=== PATIENT | male | born 1980 | race Caucasian/White ===

== ENCOUNTER 2017-01-13 21:16 | Emergency (ER) | payer BC ==
[~2017-01-13] VITALS: Ht 175.3 cm; Wt 146.0 kg
[2017-01-13 21:21] VITALS: Ht 175.3 cm; Wt 146.0 kg
[2017-01-13] MEDS ORDERED: PRED50TA PO (21:52)
[2017-01-13] MEDS ORDERED: PROM5SYR2 PO (21:52)
--- NOTE | 2017-01-13 21:59 | ERD ---
ER Documentation Chief Complaint Date/Time DATE: 01/13/17 TIME: 21:57 Chief Complaint cough x 6 days HPI Patient is a 36-year-old male who has had a dry cough for about 1 week. He says he has also had a fever but he has been taking Motrin. He was seen by his primary care doctor and he was given a Z-Thomas and today was the last dose and he continues to have some coughing. Denies any nausea or vomiting. He does state he is a smoker and used to smoke about a pack and a half a day but recently has cut down to 8 a day and is making progress to quit smoking more. Denies any chest pain. Denies any shortness of breath. His cough is dry worse at night and makes it difficult for him to sleep. ROS All systems reviewed and are negative except as per history of present illness. Medications Home Meds Active Scripts Promethazine HCl/Codeine (Prometh-Codein 6.25-10 mg/5 ml) 5 Ml Syrup, 5 ML PO QHS, #5 OZ Prov:LIYAH VALIENTE PA-C 01/13/17 Prednisone* (Prednisone*) 50 Mg Tablet, 50 MG PO DAILY, #5 TAB Prov:LIYAH VALIENTE PA-C 01/13/17 Allergies Allergies: Coded Allergies: acetaminophen (Verified Allergy, SWELLING, 08/17/13) hydrocodone bit (Verified Allergy, SWELLING, 08/17/13) morphine (Verified Allergy, 08/17/13) Uncoded Allergies: OPIATES (Allergy, 11/08/12) PMhx/Soc History of Surgery: No Anesthesia Reaction: No Hx Neurological Disorder: No Hx Respiratory Disorders: No Hx Cardiac Disorders: No Hx Psychiatric Problems: No Hx Miscellaneous Medical Probl: No Hx Alcohol Use: No Hx Substance Use: No Hx Tobacco Use: No FmHx Family History: No diabetes Physical Exam Vitals Vital Signs Date Time Temp Pulse Resp B/P Pulse Ox O2 Delivery O2 Flow Rate FiO2 01/13/17 21:21 98.6 96 20 156/80 98 Physical Exam General: well developed, well nourished, alert, nontoxic, no distress Head: normocephalic, atraumatic Eyes: PERRL, normal conjunctiva Neck: Supple, nontender, no lymphadenopathy, no midline tenderness Ears: no tenderness over mastoids bilaterally, TMs nonerythematous, no exudates in canal Oropharynx: no tonsilar erythema or edema, uvula midline, no exudates, no kissing tonsils, no drooling Respiratory: Mild expiratory wheezing, no use of accessory muscles, no labored breathing Cardiovascular: RRR, No murmurs Procedures/MDM Patient presents with what is most likely wheezy bronchitis. His vital signs are normal he is afebrile. He recently completed azithromycin today. I doubt he has pneumonia. I doubt he needs morning antibiotics. He was counseled on smoking cessation for 2 minutes. He was given a prescription for promethazine with codeine cough syrup as well as a short course of prednisone. Recommended this patient follow up with her primary care doctor within 48 hours or return to the emergency room for any worsening of symptoms. However this time I do believe there is suitable for outpatient management. I answered all their questions and they agreed with the plan and were discharged home. Departure Diagnosis: Primary Impression: Wheezy bronchitis Condition: Stable Patient Instructions: Bronchitis With Wheezing (Adult) Additional Instructions: Call your primary care doctor TOMORROW for an appointment during the next 1-2 days.See the doctor sooner or return here if your condition worsens before your appointment time. LIYAH VALIENTE PA-C Jan 13, 2017 21:59
== END 2017-01-13 22:20 | disposition home or self-care (01) ==
LOC: FTE 21:16
DX: J40 Bronchitis, not specified as acute or chronic (principal); F17.210 Nicotine dependence, cigarettes, uncomplicated
CPT/HCPCS: 99284

== ENCOUNTER 2017-01-20 19:59 | Inpatient (IN) | payer BC ==
[~2017-01-20] VITALS: Ht 177.8 cm; Wt 145.0 kg
[~2017-01-20 19:59] MED LIST: PRED50TA PO; PROM5SYR2 PO
--- NOTE | 2017-01-20 22:18 | RADRPT ---
PROCEDURE: XR Chest. CLINICAL INDICATION: Cough. TECHNIQUE: Single frontal view of the chest. COMPARISON: 08/19/2013. FINDINGS: Cardiomegaly and mild pulmonary vascular junction with mild bilateral patchy mid lung and lung base atelectasis versus airspace disease. lung aeration is improved over interval. No signs of pleural fl uid or pneumothorax are seen. The osseous structures and soft tissues are unremarkable. IMPRESSION: Improved mild failure. RPTAT: [facility] Physician Ernesto Date Time Electronically viewed and signed by Physician Ernesto on 01/20/2017 22:18 RS/
[2017-01-20 22:51] LABS: ABNORMAL IP MESSAGE 1; HEMATOCRIT 47.3 % (42.0-52.0); HEMOGLOBIN 15.7 g/dl (14.0-18.0); MEAN CORPUSCULAR HEMOGLOBIN 27.6 pg (29.0-33.0); MEAN CORPUSCULAR HGB CONC 33.2 g/dl (32.0-37.0); MEAN CORPUSCULAR VOLUME 83.1 fl (82.0-101.0); MEAN PLATELET VOLUME 8.9 fl (7.4-10.4); PLATELET COUNT 441 10^3/UL (140-415); RED BLOOD COUNT 5.69 10^6/ul (4.70-6.10); RED CELL DISTRIBUTION WIDTH 14.1 % (11.5-14.5)
[2017-01-20 22:55] LABS: INR 1.02; PROTIME 13.4 Sec (12.2-14.2)
[2017-01-20 22:56] LABS: PARTIAL THROMBOPLASTIN TIME 28.3 Sec (25.0-35.0)
[2017-01-20 23:02] LABS: ANION GAP 15 (8-16); BLOOD UREA NITROGEN 19 mg/dl (7-20); CALCIUM 9.3 mg/dl (8.4-10.2); CARBON DIOXIDE 26 mmol/L (21-31); CHLORIDE 101 mmol/L (97-110); CREATININE 0.86 mg/dl (0.61-1.24); GLUCOSE 99 mg/dl (70-220); POTASSIUM 3.6 mmol/L (3.5-5.1); SODIUM 138 mmol/L (135-144)
[2017-01-20 23:14] LABS: B-TYPE NATRIURETIC PEPTIDE 457 PG/ML (0-125)
[2017-01-20 23:18] LABS: EOSINOPHILS # 0.6 10^3/ul (0.0-0.5); LYMPHOCYTES # 6.4 10^3/ul (0.8-2.9); MONOCYTE # 1.7 10^3/ul (0.3-0.9); NEUTROPHIL # 19.3 10^3/ul (1.6-7.5)
[2017-01-20 23:24] LABS: TROPONIN-I < 0.012 ng/ml (0.00-0.12)
[2017-01-21] VITALS (14 sets, daily range): BP systolic 119–173; BP diastolic 56–96; PULSE 72–95; RESP 19–22; TEMP 98.8; Ht 177.8 cm; Wt 145.0 kg
[2017-01-21] MEDS ORDERED: LEVOFLOXACIN 750MG/D5W (PMX) 150 ML IVPB ONE
[2017-01-21] MEDS ORDERED: CEFTRIAXONE 1 GM/50 ML (PMX) 50 ML IVPB ONE
[2017-01-21] MEDS ORDERED: IPRATROPIUM (NEB) 0.5 MG/2.5 ML AMP HHN ONE
[2017-01-21] MEDS ORDERED: LEVALBUTEROL (NEB) 1.25 MG/0.5 ML AMP HHN ONE
[2017-01-21] MEDS ORDERED: FLUCONAZOLE 400 MG/NS (PMX) 200 ML IVPB ONE
[2017-01-21] MEDS ORDERED: METHYLPREDNISOLONE 125 MG INJ IV ONE
[2017-01-21] MEDS ORDERED: HYD25 PO (01:16)
[2017-01-21] MEDS ORDERED: GUAI-637 PO (01:16)
[2017-01-21] MEDS ORDERED: IBUP200C11 PO (01:16)
[2017-01-21] MEDS ORDERED: VALS160T20 PO (01:16)
[2017-01-21] MEDS: PROMETHAZINE/CODEINE 5ML CUP PO PRN (01:43)
[2017-01-21] MEDS ORDERED: DOCUSATE SODIUM 100 MG CAP PO PRN (02:30)
[2017-01-21] MEDS ORDERED: BISACODYL (EC) 5 MG TAB PO PRN (02:30)
[2017-01-21] MEDS ORDERED: FUROSEMIDE 40 MG INJ IV ONE ×2 (02:30)
[2017-01-21] MEDS ORDERED: ACETAMINOPHEN 325 MG TAB PO PRN (02:30)
[2017-01-21] MEDS ORDERED: NACL 0.9% 3 ML SYG IV SCH (02:30)
[2017-01-21] MEDS ORDERED: ONDANSETRON 4 MG INJ IV PRN (02:30)
[2017-01-21] MEDS ORDERED: FLUCONAZOLE 200 MG TAB PO ONE (02:30)
[2017-01-21] MEDS ORDERED: morphine 2 MG INJ IV ONE (04:00)
--- NOTE | 2017-01-21 04:10 | ERA ---
ER Documentation Chief Complaint Date/Time DATE: 01/21/17 TIME: 04:05 Chief Complaint cough x 6 weeks HPI The patient is a 36-year-old male, presenting to the ER because of persistent, dry cough for the last 6 weeks. He did completed Zithromax for 5 days, and recently completed 10 days of Augmentin with minimal response. He was seen in the ER a week ago and treated with Phenergan with codeine and prednisone 50 mg for 5 days. He came back to the ER because of the inability to lay down flat when sleeping, worsening cough, denies fever, neck pain, complaints of vague chest discomfort. He denies chest pain with exertion of vomiting or diaphoresis , denies abdominal pain, vomiting, dysuria, diarrhea. He smokes 1-2 packs a day Past medical history: Obesity, hypertension Past surgical history: None ROS All systems reviewed and are negative except as per history of present illness. Medications Home Meds Active Scripts Promethazine HCl/Codeine (Prometh-Codein 6.25-10 mg/5 ml) 5 Ml Syrup, 5 ML PO QHS, #5 OZ Prov:LIYAH VALIENTE PA-C 01/13/17 Prednisone* (Prednisone*) 50 Mg Tablet, 50 MG PO DAILY, #5 TAB Prov:LIYAH VALIENTE PA-C 01/13/17 Reported Medications Guaifenesin* (Robitussin*) 100 Mg/5 Ml Syrup, 200 MG PO Q4H Y for COUGH, ML 01/21/17 Ibuprofen* (Advil*) 200 Mg Capsule, 600 MG PO Q6H Y for PAIN, CAP 01/21/17 Hydrochlorothiazide* (Hydrochlorothiazide*) 25 Mg Tab, 25 MG PO DAILY, #30 TAB 01/21/17 Valsartan* (Diovan*) 160 Mg Tablet, 160 MG PO DAILY, TAB 01/21/17 Allergies Allergies: Coded Allergies: mustard (Verified Allergy, Unknown, hives, 01/21/17) PMhx/Soc Medical and Surgical Hx: pt denies Medical Hx, pt denies Surgical Hx History of Surgery: Yes Anesthesia Reaction: No Hx Neurological Disorder: No Hx Respiratory Disorders: No Hx Cardiac Disorders: No Hx Psychiatric Problems: No Hx Miscellaneous Medical Probl: No Hx Alcohol Use: No Hx Substance Use: No Hx Tobacco Use: No Smoking Status: Current every day smoker Physical Exam Vitals Vital Signs Date Time Temp Pulse Resp B/P Pulse Ox O2 Delivery O2 Flow Rate FiO2 01/20/17 20:08 98.3 96 20 150/99 96 Physical Exam Const: No acute distress. Head: Atraumatic. Eyes: Normal Conjunctiva. ENT: Normal External Ears, Nose and Mouth. Esophageal candidiasis Neck: Full range of motion. No meningismus. Resp: Bilateral expiratory wheezes Cardio: Regular rate and rhythm. Abd: Soft, non distended, normal bowel sounds, non tender. Skin: No petechiae or rashes. Back: No midline or flank tenderness. Ext: No cyanosis, or edema. Neur: Awake and alert. No focal deficit Psych: Normal Mood and Affect. Result Diagram: 01/20/17215001/20/172150 Results 24 hrs Laboratory Tests Test 01/20/17 21:51 White Blood Count 27.910^3/ul Red Blood Count 5.6910^6/ul Hemoglobin 15.7g/dl Hematocrit 47.3% Mean Corpuscular Volume 83.1fl Mean Corpuscular Hemoglobin 27.6pg Mean Corpuscular Hemoglobin Concent 33.2g/dl Red Cell Distribution Width 14.1% Platelet Count 69917^3/UL Mean Platelet Volume 8.9fl Neutrophils % 69.0% Lymphocytes % 23.0% Monocytes % 6.0% Eosinophils % 2.0% Neutrophils # 19.310^3/ul Lymphocytes # 6.410^3/ul Monocytes # 1.710^3/ul Eosinophils # 0.610^3/ul Prothrombin Time 13.4Sec Prothrombin Time Ratio 1.0 INR International Normalized Ratio 1.02 Activated Partial Thromboplast Time 28.3Sec Sodium Level 138mmol/L Potassium Level 3.6mmol/L Chloride Level 101mmol/L Carbon Dioxide Level 26mmol/L Anion Gap 15 Blood Urea Nitrogen 19mg/dl Creatinine 0.86mg/dl Glucose Level 99mg/dl Calcium Level 9.3mg/dl Troponin I < 0.012ng/ml B-Type Natriuretic Peptide 457PG/ML Current Medications Medications (Trade) Dose Ordered Sig/Elizabeth Route PRN Reason Start Time Stop Time Status Last Admin Dose Admin Levofloxacin/ Dextrose 150 ml @ 100 mls/hr ONCE ONCE IVPB 01/21/17 00:00 01/21/17 01:29 DC 01/21/17 00:46 Ceftriaxone Sodium (Rocephin) 50 ml @ 100 mls/hr ONCE ONCE IVPB 01/21/17 00:00 01/21/17 00:29 DC 01/21/17 00:27 Furosemide (Lasix) 40 mg ONCE ONCE IV 01/21/17 00:00 01/21/17 00:04 DC 01/21/17 00:45 Levalbuterol (Xopenex Neb) 3.75 mg ONCE ONCE HHN 01/21/17 00:00 01/21/17 00:04 DC 01/21/17 01:34 Ipratropium [place] (Atrovent 0.02% (Neb)) 1.5 mg ONCE ONCE HHN 01/21/17 00:00 01/21/17 00:04 DC 01/20/17 01:34 Methylprednisolone Sodium Succinate 125 mg 125 mg ONCE ONCE IV 01/21/17 00:00 01/21/17 00:04 DC 01/21/17 00:44 Fluconazole (Diflucan 400 Mg/ NS (Pmx)) 200 ml @ 200 mls/hr ONCE ONCE IVPB 01/21/17 00:00 01/21/17 00:59 DC 01/21/17 02:01 Procedures/[place] [address] Radiology Main Line: [phone] DIAGNOSTIC IMAGING REPORT Patient: CARMEN YING : 1980 Age: 36 Sex: M MR #: [id number] DOS: 01/20/17 0000 Ordering MD: SAFIA VILLEGAS PA-C Location: [facility] Room/Bed: PROCEDURE: XR Chest. CLINICAL INDICATION: Cough. TECHNIQUE: Single frontal view of the chest. COMPARISON: 08/19/2013. FINDINGS: Cardiomegaly and mild pulmonary vascular junction with mild bilateral patchy mid lung and lung base atelectasis versus airspace disease. lung aeration is improved over interval. No signs of pleural fluid or pneumothorax are seen. The osseous structures and soft tissues are unremarkable. IMPRESSION: Improved mild failure. RPTAT: [facility] Physician Ernesto Date Time Electronically viewed and signed by Dale Cano Physician on 01/20/2017 22:18 RS/ CC: SAFIA VILLEGAS PA-C EKG: Read by emergency physician Rate/Rhythm: Normal Sinus Rhythm 88 beats/min QRS, ST, T-waves: No ST elevation, no T inversion, and lateral T abnormality Impression: Abnormal EKG MEDICAL MAKING DECISION: The patient is a 36-year-old male, presenting with acute new onset CHF, acute bronchitis that failed outpatient therapy, acute esophageal candidiasis. He was treated with Lasix 40 mg IV for acute CHF, Levaquin IV and Rocephin IV and Xopenex 3.75 mg and Atrovent 1.5 mg over an hour , Solu-Medrol 125 mg IV for bronchitis, fluconazole and 400 mg IV for acute esophageal candidiasis with good response. The differential diagnoses considered include but are not limited to asthma, COPD, pneumonia, pulmonary embolus, pleural effusion, congestive heart failure, sleep apnea. Critical Care: Time: 35 minutes excluding all billable procedures. Treatments/Evaluations: Close monitoring and treatment of unstable vital signs, cardiorespiratory, and neurologic status, while maintaining tight balance of fluid, respiratory, and cardiac interventions. Departure Diagnosis: Primary Impression: Bronchitis Additional Impressions: CHF (congestive heart failure) Esophageal candidiasis Condition: Stable Comments I discussed the findings with the patient. I discussed the patient with the on- call hospitalist Dr. Young at 12 AM. who was made aware of the lab, the treatment, the patient condition. The patient is admitted to telemetry JAYLA MCCANN MD Jan 21, 2017 04:09
[2017-01-21] MEDS: ALBUTEROL/IPRATROPIUM (NEB) 3 ML AMP HHN SCH ×5 (04:58→20:29)
[2017-01-21] MEDS: PANTOPRAZOLE 40 MG INJ IV SCH (06:01)
--- NOTE | 2017-01-21 06:23 | HP ---
Date/Time of Note Date/Time of Note DATE: 01/21/17 TIME: 06:11 Assessment/Plan VTE Prophylaxis VTE Prophylaxis Intervention: LMWH Lines/Catheters IV [facility]from [facility] Peripheral IV Urinary Cath still in place: No Assessment/Plan Chief Complaint/Hosp Course This is a 36-year-old male being admitted to the telemetry floor for: #1 acute respiratory distress: New-onset CHF versus respiratory/infectious etiology. Patient has a white count of 27 and he has had fevers on and off for the last couple weeks. Patient also has been having this cough for the last 6 weeks. Patient also has been on steroids I will order CRP level to as well as the 27 white blood cell count could also be partially due to his previously being on steroids. BNP is elevated at approximately 470. And there is mild congestion noted on the chest x-ray. This could this could be a combination of CHF and infectious process going on at the same time as well as secondary to patient's smoking history could have underlying COPD exacerbation though patient has not been diagnosed with COPD previously. At the current time we will treat the patient with Levaquin IV. Will also give the patient Lasix for IV diuresis. I will be giving him promethazine with codeine for his cough not very cautious about this however he was not getting any relief from his coughing at home with other medications as well as promethazine and codeine. Will continue to monitor the patient closely. We will also give the patient a burst dose of steroids. Will obtain a 2D echocardiogram. And consult cardiology. I will also order a CT scan of the chest for further evaluation. #2 Hypertension: Continue current medications #3 morbid obesity: We will check her A1c and cholesterol panel as well as a TSH level. #4 tobacco abuse: A discussion was had with the patient regarding the patient's continued tobacco use despite his current medical condition. Will provide the patient nicotine patch at this time. #5 DVT GI prophylaxis: Lovenox, Protonix Further treatment strategy will will be implemented as per the clinical course Problems: HPI/ROS Admit Date/Time Admit Date/Time Jan 21, 2017 at 00:08 Hx of Present Illness Chief complaint: Cough for 6 weeks This is a 36-year-old male, presenting to the ER because of persistent, dry cough for the last 6 weeks. He did complete a course of Zithromax for 5 days, and recently completed 10 days of Augmentin with minimal response. He was seen in the ER a week ago and treated with Phenergan with codeine and prednisone 50 mg for 5 days. He came back to the ER because of the inability to lay down flat when sleeping, worsening cough, denies fever, neck pain, complaints of vague chest discomfort. He denies chest pain with exertion of vomiting or diaphoresis, denies abdominal pain, vomiting, dysuria, diarrhea. He is a cigarette smoker and he continues to smoke. Allergies: Mustard seeds Medications: See MOHAMUD HUNTER Const: As patient Eyes : No pain discharge or redness or change in visual acuity ENT: No pain, sore throat, congestion, congestion, dysphagia or discharge Respiratory: As per Cardiovascular: As per GI : no change in appetite, abdominal pain, nausea, vomiting, diarrhea, constipation, or change in the color his stool Genitourinary: No dysuria, hematuria, flank pain , discharge or CVA tenderness Musculoskeletal: No joint pain, back pain, neck pain, restricted range of motion in neck or joints Skin: No rash, bruising or hives Neuro: No headache, dizziness, syncope, seizure, focal weakness Endocrine: No polyuria, polydipsia, temperature intolerance Psych: No hallucination, depression, anxiety or suicidal ideation PMH/Family/Social Past Medical History Hypertension, obesity Past Surgical History Left leg surgery, back cyst surgery, tonsillectomy Family History Significant Family History: other (Mom: [place], cannot) Social History Alcohol Use: rarely Smoking Status: Current every day smoker (1 pack per day 16 years) Drug Use: none Exam/Review of Systems Vital Signs Vitals Vital Signs Date Time Temp Pulse Resp B/P Pulse Ox O2 Delivery O2 Flow Rate FiO2 01/21/17 05:07 2.0 01/21/17 05:07 83 18 98 Nasal Cannula 01/21/17 03:10 98.8 160/94 01/21/17 01:35 21 Intake and Output 01/20/17 01/20/17 01/21/17 15:00 23:00 07:00 Intake Total 100 ml Balance 100 ml Exam Exam General: Patient is an obese male, in moderate distress from repeated coughing fits HEENT: Atraumatic, normocephalic. The pupils are equal, round and reactive. Extraocular motor are intact Neck: Supple with full range of motion. No rigidity or meningismus Chest: Tender to palpation over the anterior chest Lungs: Coarse breath sounds bilaterally, mild crackles at the base Heart: Normal S1-S2, Regular rhythm and rate. Abdomen: Soft , nontender, nondistended , bowel sounds are present. No guarding no rebound tenderness , No masses or organomegaly. No costovertebral temporal angle mass Extremities: Normal to inspection, no edema no cyanosis Neurologic: Normal mental status, speech normal, cranial nerves II through XII are intact, motor and sensory are intact, no focal weakness Additional Comments PROCEDURE: XR Chest. CLINICAL INDICATION: Cough. TECHNIQUE: Single frontal view of the chest. COMPARISON: 08/19/2013. FINDINGS: Cardiomegaly and mild pulmonary vascular junction with mild bilateral patchy mid lung and lung base atelectasis versus airspace disease. lung aeration is improved over interval. No signs of pleural fluid or pneumothorax are seen. The osseous structures and soft tissues are unremarkable. IMPRESSION: Improved mild failure. RPTAT: [facility] Physician Ernesto Date Time Electronically viewed and signed by Physician Ernesto on 01/20/2017 22:18 RS/ CC: SAFIA VILLEGAS PA-C EKG: Rate/Rhythm: Normal Sinus Rhythm 88 beats/min QRS, ST, T-waves: No ST elevation, no T inversion, and lateral T abnormality As per ED physician documentation Labs Result Diagram: 01/20/17215001/20/172150 Medications Medications Current Medications Promethazine HCl/ Codeine (Phenergan/ Codeine) 10 ml Q4H PRN PO COUGH Last administered on 01/21/17t 01:43; Admin Dose 10 ML; Start 01/21/17 at 01:00 Ondansetron HCl (Zofran Inj) 4 mg Q6H PRN IV NAUSEA AND/OR VOMITING; Start 01/21 at 02:30 Acetaminophen (Tylenol Tab) 650 mg Q6H PRN PO PAIN LEVEL 1-3 OR FEVER; Start at 02:30 Docusate Sodium (Colace) 100 mg Q12H PRN PO CONSTIPATION; Start 01/21/17 at 02: 30 Bisacodyl (Dulcolax) 5 mg DAILY PRN PO CONSTIPATION; Start 01/21/17 at 02:30 Pantoprazole (Protonix Iv) 40 mg DAILY@06 IV Last administered on 01/21/17t 06: 01; Admin Dose 40 MG; Start 01/21/17 at 06:00 Enoxaparin Sodium (Lovenox) 40 mg DAILY SC ; Start 01/21/17 at 09:00 Hydrochlorothiazide (Hydrochlorothiazide) 25 mg DAILY PO ; Start 01/21/17 at 09: 00 Prednisone (Prednisone) 50 mg DAILY PO ; Start 01/21/17 at 09:00 Valsartan 160 mg 160 mg DAILY PO ; Start 01/21/17 at 09:00 Levofloxacin/ Dextrose 150 ml @ 100 mls/hr Q24H IVPB ; Start 01/22/17 at 01:00 Ceftriaxone Sodium (Rocephin) 50 ml @ 100 mls/hr Q24H IVPB ; Start 01/22/17 at 00:00 Fluconazole (Diflucan) 200 mg DAILY PO ; Start 01/21/17 at 09:00 Benzonatate (Tessalon) 200 mg TID PO ; Start 01/21/17 at 09:00 LUBA CASTANO Jan 21, 2017 06:22
[2017-01-21 07:47] LABS: CREATINE KINASE 51 IU/L (23-200)
[2017-01-21 08:07] LABS: CK-MB 1.47 ng/ml (0.0-2.4); TROPONIN-I < 0.012 ng/ml (0.00-0.12)
[2017-01-21] MEDS ORDERED: FLUCONAZOLE 200 MG TAB PO SCH (09:00)
[2017-01-21] MEDS ORDERED: FUROSEMIDE 40 MG INJ IV SCH (09:00)
[2017-01-21] MEDS: VALSARTAN 160 MG TAB PO SCH (09:15)
[2017-01-21] MEDS: BENZONATATE 100 MG CAP PO SCH ×3 (09:15→21:04)
[2017-01-21] MEDS: ENOXAPARIN 40 MG/0.4 ML SYG SC SCH (09:15)
[2017-01-21] MEDS: predniSONE 50 MG TAB PO SCH (09:16)
[2017-01-21] MEDS: HYDROCHLOROTHIAZIDE 25 MG TAB PO SCH (09:16)
[2017-01-21] MEDS ORDERED: SOD CHLORIDE 0.9% 100 ML ONE (10:33)
[2017-01-21] MEDS ORDERED: IOHEXOL 100 ML ONE (10:33)
--- NOTE | 2017-01-21 11:01 | RADRPT ---
PROCEDURE: CTA Chest with IV contrast. CLINICAL INDICATION: Chest pain and shortness of breath. Cough. TECHNIQUE: The study was performed utilizing a multidetector CT scanner. Direct spiral axial secti ons were obtained from the thoracic inlet through the upper abdomen before and after the injection o f 100 cc Omnipaque 350 intravenous contrast material and reformatted at 1.25 mm. 3D, coronal and sag ittal reformations were obtained. The images were reviewed on a PACS workstation. Automated exposure control was utilized. DLP = 797.3 mGy-cm.CTDiVol = 7.0, 56.3, 20.0 mGy. One or more of the following post reduction techniques were used: - Automated exposure control. - Adjustment of the mA and/or Kv according to patient's size. - Use of iterative reconstruction technique COMPARISON: CT August 18, 2013 FINDINGS: No pulmonary arterial filling defects to indicate pulmonary embolus are identified. Heart size is within normal limits. No hilar or mediastinal lymphadenopathy is identified. The vis ualized portions of the inferior thyroid appear unremarkable. The arterial vasculature of the medias tinum appears normal. The thoracic esophagus appears normal. Dependent, subsegmental atelectasis is noted in both lungs. Diffuse fatty infiltration of the liver is identified. The remainder of the visualized organs of th e superior abdomen are unremarkable. Osseous structures of the chest are intact and normal-appearing. The subcutaneous and muscular soft tissues surrounding the chest are unremarkable. IMPRESSION: No visualized pulmonary embolus. Dependent, subsegmental atelectasis in both lungs. Diffuse fatty infiltration of the liver. RPTAT: AA .Shon Gaytan MD, Date Time Electronically viewed and signed by .Shon Gaytan MD, MD on 01/21/2017 11:00 .P/
[2017-01-21 14:09] LABS: CREATINE KINASE 35 IU/L (23-200)
[2017-01-21 14:24] LABS: CK-MB 1.45 ng/ml (0.0-2.4); TROPONIN-I < 0.012 ng/ml (0.00-0.12)
[2017-01-21] MEDS ORDERED: PROMETHAZINE 25 MG TAB PO PRN (14:30)
[2017-01-21 14:51] LABS: BASOPHIL # 0.1 10^3/ul (0.0-0.1); BASOPHILS % 0.3 % (0.0-2.0); HEMATOCRIT 48.8 % (42.0-52.0); HEMOGLOBIN 16.2 g/dl (14.0-18.0); LYMPHOCYTES # 3.1 10^3/ul (0.8-2.9); LYMPHOCYTES % 13.8 % (15.0-51.0); MEAN CORPUSCULAR HEMOGLOBIN 27.4 pg (29.0-33.0); MEAN CORPUSCULAR HGB CONC 33.2 g/dl (32.0-37.0); MEAN CORPUSCULAR VOLUME 82.4 fl (82.0-101.0); MEAN PLATELET VOLUME 8.7 fl (7.4-10.4); MONOCYTE # 0.5 10^3/ul (0.3-0.9); NEUTROPHIL # 18.2 10^3/ul (1.6-7.5); NEUTROPHILS % 81.9 % (39.0-77.0); PLATELET COUNT 467 10^3/UL (140-415); RED BLOOD COUNT 5.92 10^6/ul (4.70-6.10); RED CELL DISTRIBUTION WIDTH 14.1 % (11.5-14.5); WHITE BLOOD COUNT 22.2 10^3/ul (4.8-10.8)
[2017-01-21 15:19] LABS: CALCIUM 9.8 mg/dl (8.4-10.2); CREATININE 0.78 mg/dl (0.61-1.24); MAGNESIUM 2.1 mg/dl (1.7-2.5); POTASSIUM 4.2 mmol/L (3.5-5.1)
[2017-01-21 15:20] LABS: ADD SCAN DIFF NO
--- NOTE | 2017-01-21 15:38 | CONS ---
Date/Time of Note Date/Time of Note DATE: 01/21/17 TIME: 15:33 Assessment/Plan Assessment/Plan Additional Assessment/Plan 1. SOB - ? PNA vs CHF - will obtain ECHO. R/o GA - doubt ischemia. 2. Hypertension: Continue current medications - better now. 3. COPD exacerbation - con't med Rx. 4. Morbid obesity: We will check her A1c and cholesterol panel as well as a TSH level. 5. Tobacco abuse: A discussion was had with the patient regarding the patient's continued tobacco use despite his current medical condition. Will provide the patient nicotine patch at this time. 6. DVT GI prophylaxis: Lovenox, Protonix Consultation Date/Type/Reason Admit Date/Time Jan 21, 2017 at 00:08 Initial Consult Date 24 HR Interval Summary Free Text/Dictation Cardiology Consult CC: SOB/CP HPI: 36 yo with h/o pna, tobacco abuse - now with cough and SOB - not in CHF by exam, likely COPD - will Rx now - awaiti ECHO - pt r/o GA. PMH: COPD, obesity, HTN Soc + tobacco abuse FH: HTN Allergy: mustard Exam/Review of Systems Vital Signs Vitals Vital Signs Date Time Temp Pulse Resp B/P Pulse Ox O2 Delivery O2 Flow Rate FiO2 01/21/17 15:08 98.3 79 19 135/65 95 01/21/17 13:25 2.0 01/21/17 13:23 Nasal Cannula 01/21/17 01:35 21 Intake and Output 01/20/17 01/20/17 01/21/17 15:00 23:00 07:00 Intake Total 100 ml Balance 100 ml Exam ROS: No fever, no chills, no nausea, no vomiting, no diarrhea/constipation No recent weight changes No chest pain, no PND, no orthopnea + SOB No dizziness, blurred vision No thirst, no heat or cold intolerance General: WN/WD/NAD, AOx 3 HEENT: Unicetric/atraumatic/EOMI (follows commands) NECK: JVD elevated, no thyromegaly Lymph: no lymphadenopathy HEART: regular with no S3, II/ systolic murmur at apex LUNGS: Coarse sounds ABD: soft, NT, ND, +BS : Intact Neuro: non focal SKIN: chronic changes EXT: trace edema Results Result Diagram: 01/21/17 1410 01/21/17 1410 Results 24 hrs Laboratory Tests Test 01/20/17 21:51 01/21/17 06:40 01/21/17 12:55 01/21/17 14:10 White Blood Count 27.9 H 22.2 #H Red Blood Count 5.69 5.92 Hemoglobin 15.7 16.2 Hematocrit 47.3 48.8 Mean Corpuscular Volume 83.1 82.4 Mean Corpuscular Hemoglobin 27.6 L 27.4 L Mean Corpuscular Hemoglobin Concent 33.2 33.2 Red Cell Distribution Width 14.1 14.1 Platelet Count 441 H 467 H Mean Platelet Volume 8.9 8.7 Neutrophils % 69.0 81.9 H Lymphocytes % 23.0 13.8 L Monocytes % 6.0 2.0 Eosinophils % 2.0 0.0 Neutrophils # 19.3 H 18.2 H Lymphocytes # 6.4 H 3.1 H Monocytes # 1.7 H 0.5 Eosinophils # 0.6 H 0.0 Prothrombin Time 13.4 Prothrombin Time Ratio 1.0 INR International Normalized Ratio 1.02 Activated Partial Thromboplast Time 28.3 Sodium Level 138 140 Potassium Level 3.6 4.2 Chloride Level 101 101 Carbon Dioxide Level 26 25 Anion Gap 15 18 H Blood Urea Nitrogen 19 19 Creatinine 0.86 0.78 Glucose Level 99 157 Calcium Level 9.3 9.8 Troponin I < 0.012 < 0.012 < 0.012 B-Type Natriuretic Peptide 457 H Creatine Kinase 51 35 Creatine Kinase Index 2.9 4.1 Creatinine Kinase MB (Mass) 1.47 1.45 C-Reactive Protein 3.7 H Basophils % 0.3 Nucleated Red Blood Cells % 0.0 Basophils # 0.1 Nucleated Red Blood Cells # 0.0 Magnesium Level 2.1 Medications Medications Current Medications Promethazine HCl/ Codeine (Phenergan/ Codeine) 10 ml Q4H PRN PO COUGH Last administered on 01/21/17t 01:43; Admin Dose 10 ML; Start 01/21/17 at 01:00 Ondansetron HCl (Zofran Inj) 4 mg Q6H PRN IV NAUSEA AND/OR VOMITING; Start 01/21 at 02:30 Acetaminophen (Tylenol Tab) 650 mg Q6H PRN PO PAIN LEVEL 1-3 OR FEVER; Start at 02:30 Docusate Sodium (Colace) 100 mg Q12H PRN PO CONSTIPATION; Start 01/21/17 at 02: 30 Bisacodyl (Dulcolax) 5 mg DAILY PRN PO CONSTIPATION; Start 01/21/17 at 02:30 Pantoprazole (Protonix Iv) 40 mg DAILY@06 IV Last administered on 01/21/17 06: 01; Admin Dose 40 MG; Start 01/21/17 at 06:00 Enoxaparin Sodium (Lovenox) 40 mg DAILY SC Last administered on 01/21/17 09:15 ; Admin Dose 40 MG; Start 01/21/17 at 09:00 Hydrochlorothiazide (Hydrochlorothiazide) 25 mg DAILY PO Last administered on 09:16; Admin Dose 25 MG; Start 01/21/17 at 09:00 Prednisone (Prednisone) 50 mg DAILY PO Last administered on 01/21/17 09:16; Admin Dose 50 MG; Start 01/21/17 at 09:00 Valsartan 160 mg 160 mg DAILY PO Last administered on 01/21/17 09:15; Admin Dose 160 MG; Start 01/21/17 at 09:00 Levofloxacin/ Dextrose 150 ml @ 100 mls/hr Q24H IVPB ; Start 01/22/17 at 01:00 Ceftriaxone Sodium (Rocephin) 50 ml @ 100 mls/hr Q24H IVPB ; Start 01/22/17 at 00:00 Fluconazole (Diflucan) 200 mg DAILY PO Last administered on 01/21/17 09:16; Admin Dose 200 MG; Start 01/21/17 at 09:00 Benzonatate (Tessalon) 200 mg TID PO Last administered on 01/21/17 14:23; Admin Dose 200 MG; Start 01/21/17 at 09:00 Promethazine HCl (Phenergan) 25 mg Q6H PRN PO cough; Start 01/21/17 at 14:30 MARGARITO RODRIGUEZ MD Jan 21, 2017 15:38
[2017-01-21] MEDS: NYSTATIN SUSP 5 ML CUP PO SCH ×2 (17:31→21:03)
[2017-01-21] MEDS: FUROSEMIDE 40 MG INJ IV SCH (17:32)
--- NOTE | 2017-01-21 17:59 | RADRPT ---
Echocardiogram Report Patient Name: CARMEN YING Gender: Male Date: 1980 Study Date: 21-Jan-2017 Tattoo Designer: Nick [facility] [[email or web address]] Location: 520 Ref. Physician: LUBA CASTANO Quality: Technically Difficult Study Procedures: Transthoracic echocardiogram with complete 2D, M-Mode, and doppler examination. Indications: Elevated BNP, Orthopnea. 2D/M Mode Doppler Measurement Value Normal Ranges Measurement Value Normal Ranges LVIDd 2D 5.0 3.5 - 5.6 cm AV Peak Orion 1.4 m/sec LVIDs 2D 3.5 2.1 - 4.1 cm AV Peak PG 8.0 mmHg FS 2D 29.5 % LVOT Peak Orion 1.5 m/sec LVPWd 2D 1.2 0.6 - 1.1 cm LVOT Peak PG 8.0 mmHg IVSd 2D 1.2 0.6 - 1.1 cm MV E Peak Orion 1.0 m/sec IVS/LVPW 2D 1.0 MV A Peak Orion 1.0 m/sec AoR Diam 2D 2.8 2.0 - 3.7 cm MV E/A 1.0 LA/Ao 2D 1 0 - 1 MV Decel Time 218 msec EDV 2D 127.0 cm3 MV E/A 1.0 ESV 2D 44.4 cm3 LA Dimen 2D 3.7 2.3 - 4.0 cm Findings Left Ventricle: Normal left ventricular systolic function. Normal left ventricular cavity size. Mild concentric left ventricular hypertrophy. Ejection fraction is visually estimated at 55 %. Tissue Doppler/Mitral Doppler indices are consistent with impaired relaxation (Stage I diastolic dysfunction). Right Ventricle: Normal right ventricular size. Normal right ventricular systolic function. Left Atrium: The left atrium is normal in size. Right Atrium: The right atrium is normal in size. Mitral Valve: Mild mitral leaflet calcification. Mild mitral annular calcification. Trace mitral regurgitation. Aortic Valve: Normal appearance of the aortic valve. No significant aortic stenosis or insufficiency. Tricuspid Valve: Normal appearance of the tricuspid valve. Unable to obtain RVSP due to minimal presence of tricuspid regurgitation. There is trace tricuspid regurgitation. Pulmonic Valve: Pulmonic valve not well visualized. There is trace pulmonic regurgitation. Pericardium: Normal pericardium with no significant pericardial effusion. Aorta: Normal aortic root. IVC: Normal size and normal respiratory collapse consistent with normal right atrial pressure. Conclusions 1.Normal left ventricular systolic function. Normal left ventricular cavity size. Mild concentric left ventricular hypertrophy. Ejection fraction is visually estimated at 55 %. Tissue Doppler/Mitral Doppler indices are consistent with impaired relaxation (Stage I diastolic dysfunction). 2.Mild mitral leaflet calcification. Mild mitral annular calcification. Trace mitral regurgitation. 3.Normal appearance of the tricuspid valve. Unable to obtain RVSP due to minimal presence of tricuspid regurgitation. There is trace tricuspid regurgitation. Electronically Signed By: Vazquez Burkett 21-Jan-2017 17:57:51 -0700 Patient Name: CARMEN YING Study Date: 21-Jan-2017 [id number]
[2017-01-21] MEDS ORDERED: morphine 10 MG INJ IV PRN (21:30)
[2017-01-21] MEDS ORDERED: morphine 2 MG INJ IV PRN (21:30)
[2017-01-22] MEDS ORDERED: CEFTRIAXONE 1 GM/50 ML (PMX) 50 ML IVPB SCH
[2017-01-22 00:01] VITALS: PULSE 60
[2017-01-22] MEDS: ALBUTEROL/IPRATROPIUM (NEB) 3 ML AMP HHN SCH ×3 (00:48→07:36)
[2017-01-22] MEDS ORDERED: LEVOFLOXACIN 750MG/D5W (PMX) 150 ML IVPB SCH (01:00)
[2017-01-22 04:01] VITALS: PULSE 60
[2017-01-22 04:05] VITALS: BP 125/64; RESP 21
[2017-01-22] MEDS: PANTOPRAZOLE 40 MG INJ IV SCH (06:27)
[2017-01-22] MEDS: FUROSEMIDE 40 MG INJ IV SCH (06:28)
[2017-01-22] MEDS: PROMETHAZINE/CODEINE 5ML CUP PO PRN (06:34)
[2017-01-22 06:35] LABS: ABNORMAL IP MESSAGE 1; BASOPHIL # 0.1 10^3/ul (0.0-0.1); BASOPHILS % 0.3 % (0.0-2.0); EOSINOPHILS # 0.2 10^3/ul (0.0-0.5); EOSINOPHILS % 0.6 % (0.0-7.0); HEMATOCRIT 46.1 % (42.0-52.0); HEMOGLOBIN 15.3 g/dl (14.0-18.0); LYMPHOCYTES % 17.2 % (15.0-51.0); MEAN CORPUSCULAR HEMOGLOBIN 27.6 pg (29.0-33.0); MEAN CORPUSCULAR HGB CONC 33.2 g/dl (32.0-37.0); MEAN CORPUSCULAR VOLUME 83.2 fl (82.0-101.0); MEAN PLATELET VOLUME 8.9 fl (7.4-10.4); MONOCYTE # 2.1 10^3/ul (0.3-0.9); MONOCYTES % 7.1 % (0.0-11.0); NEUTROPHIL # 21.2 10^3/ul (1.6-7.5); NEUTROPHILS % 73.3 % (39.0-77.0); PLATELET COUNT 439 10^3/UL (140-415); RED BLOOD COUNT 5.54 10^6/ul (4.70-6.10); RED CELL DISTRIBUTION WIDTH 14.4 % (11.5-14.5); WHITE BLOOD COUNT 28.9 10^3/ul (4.8-10.8)
[2017-01-22 06:57] LABS: ALBUMIN 4.3 g/dl (3.3-4.9); ALBUMIN/GLOBULIN RATIO 1.65; CREATININE 0.85 mg/dl (0.61-1.24); POTASSIUM 4.4 mmol/L (3.5-5.1); TOTAL PROTEIN 6.9 g/dl (6.1-8.1)
[2017-01-22 07:04] LABS: ADD SCAN DIFF NO
[2017-01-22 07:45] VITALS: BP 128/68; RESP 19
[2017-01-22 08:13] LABS: CHOL/HDL RATIO 5.7 RATIO
[2017-01-22 08:24] LABS: MAGNESIUM 2.3 mg/dl (1.7-2.5)
[2017-01-22 08:47] VITALS: PULSE 68
[2017-01-22 08:48] LABS: THYROID STIMULATING HORMONE 0.562 MIU/L (0.465-4.680)
[2017-01-22] MEDS: BENZONATATE 100 MG CAP PO SCH (08:52)
[2017-01-22] MEDS: NYSTATIN SUSP 5 ML CUP PO SCH (08:52)
[2017-01-22] MEDS: HYDROCHLOROTHIAZIDE 25 MG TAB PO SCH (08:53)
[2017-01-22] MEDS: predniSONE 50 MG TAB PO SCH (08:53)
[2017-01-22] MEDS: VALSARTAN 160 MG TAB PO SCH (08:53)
[2017-01-22] MEDS: ENOXAPARIN 40 MG/0.4 ML SYG SC SCH (09:00)
--- NOTE | 2017-01-22 10:47 | RADRPT ---
PROCEDURE: XR Chest. CLINICAL INDICATION: CHF. TECHNIQUE: PA and lateral chest x-ray. COMPARISON: Chest radiograph 01/20/2017. Chest CTA 01/21/2017. FINDINGS: The cardiomediastinal silhouette is unremarkable. Mild bibasilar atelectasis is noted. No pneumothorax, pleural effusion or consolidation is seen. No acute osseous abnormality is noted. IMPRESSION: 1. Mild bibasilar atelectasis. 2. Otherwise no acute cardiopulmonary abnormality. RPTAT: PP .Brigette Mckeon MD, Date Time Electronically viewed and signed by .Brigette Mckeon MD, on 01/22/2017 10:46 .N/
[2017-01-22 11:04] VITALS: BP 125/68; RESP 20
[2017-01-22] MEDS ORDERED: PROM25TA14 PO (11:17)
[2017-01-22] MEDS ORDERED: PRED10TA PO ×2 (11:17→11:37)
[2017-01-22] MEDS ORDERED: NYST1000 PO (11:17)
[2017-01-22] MEDS ORDERED: POTA20TA96 PO (11:19)
[2017-01-22] MEDS ORDERED: PROM5SYR2 PO (11:19)
[2017-01-22] MEDS ORDERED: FURO-109 PO (11:19)
[2017-01-22] MEDS ORDERED: LEVO750T8 PO (11:20)
[2017-01-22] MEDS ORDERED: ADV10050 INHALATION (11:38)
--- NOTE | 2017-01-22 18:33 | DS ---
Date/Time of Note Date/Time of Note DATE: 01/22/17 TIME: 18:27 Discharge Summary Admission/Discharge Info Admit Date/Time Jan 21, 2017 at 00:08 Discharge Date/Time Jan 22, 2017 at 12:39 Discharge Diagnosis 1. COPD exacerbation 2. Mild pulmonary vascular congestion secondary to mild diastolic heart failure , acute. 3. Steroid-induced leukocytosis 4. Chronic tobacco use 5. Oral candidiasis secondary to inhaler use . Hx of Present Illness Chief complaint: Cough for 6 weeks This is a 36-year-old male, presenting to the ER because of persistent, dry cough for the last 6 weeks. He did complete a course of Zithromax for 5 days, and recently completed 10 days of Augmentin with minimal response. He was seen in the ER a week ago and treated with Phenergan with codeine and prednisone 50 mg for 5 days. He came back to the ER because of the inability to lay down flat when sleeping, worsening cough, denies fever, neck pain, complaints of vague chest discomfort. He denies chest pain with exertion of vomiting or diaphoresis, denies abdominal pain, vomiting, dysuria, diarrhea. He is a cigarette smoker and he continues to smoke. Allergies: Mustard seeds Medications: See [facility] Course 36-year-old male who had presented to the emergency room with severe respiratory distress, this has failed outpatient therapy as patient had been using albuterol and steroids at home with no relief. He was found to have mild vascular congestion and he was treated with intravenous steroids, scheduled bronchodilator therapy, as well as empiric antibiotics. He was also gently diuresed for vascular congestion. However by day 2 of admission the patient started patient for discharge, reporting that the hospital bed was not very comfortable and he would like to be in his own home. He was found to have a hemoglobin A1c of 6.3, but asked patient has been on steroid therapy this is likely as a result of that. He was however notified about this and asked to follow-up with his primary care doctor within 3 months for a repeat. He was also seen by cardiology who doubted that his symptoms were due to cardiac ischemia and recommended tobacco cessation and continued bronchodilator therapy. From my standpoint the patient is stable for discharge for continued outpatient treatment with bronchodilator and inhaled as well as oral steroids. He was also continued on antihypertensives with good response in-house. He has been given discharge instructions on when to return, is encouraged to follow-up with his primary care physician for the end of the week to ensure continued resolution of symptoms, and he has been cleared for discharge also by cardiology. . Home Meds Active Scripts Salmeterol Xinaf-Fluticasone* (Advair*) 100/50 Diskus Inhaler, 1 INH INHALATION BID, #1 INHALER Prov:LOLIS KENT Radha 01/22/17 Prednisone* (Prednisone*) 10 Mg Tab, 10 MG PO DAILY, #15 TAB take 5 pills on the next day take 4 pills on the next day take 3 pills on the next day take 2 pills on the next day take 1 pill on the next day then stop Prov:ANGELINA KENTPaty Radha 01/22/17 Levofloxacin* (Levofloxacin*) 750 Mg Tablet, 750 MG PO DAILY for 7 Days, TAB [facility] 01/22/17 Potassium Chloride* (Potassium Chloride*) 20 Meq Tablet.er, 20 MEQ PO DAILY for 10 Days, TAB.SA Prov:ANGELINA KENTPaty 01/22/17 Furosemide* (Lasix*) 40 Mg Tablet, 40 MG PO DAILY for 7 Days, TAB [facility] 01/22/17 Promethazine HCl/Codeine (Prometh-Codein 6.25-10 mg/5 ml) 5 Ml Syrup, 5 ML PO QHS, #60 OZ [facility] 01/22/17 Nystatin (Nystatin) 100,000 Unit/1 Ml Oral.susp, 5 ML PO QID for 10 Days Prov:ANGELINA KENTPaty Radha 01/22/17 Reported Medications Guaifenesin* (Robitussin*) 100 Mg/5 Ml Syrup, 200 MG PO Q4H Y for COUGH, ML 01/21/17 Ibuprofen* (Advil*) 200 Mg Capsule, 600 MG PO Q6H Y for PAIN, CAP 01/21/17 Hydrochlorothiazide* (Hydrochlorothiazide*) 25 Mg Tab, 25 MG PO DAILY, #30 TAB 01/21/17 Valsartan* (Diovan*) 160 Mg Tablet, 160 MG PO DAILY, TAB 01/21/17 Discontinued Scripts Prednisone* (Prednisone*) 50 Mg Tablet, 50 MG PO DAILY, #5 TAB Prov:LIYAH VALIENTE PA-C 01/13/17 Primary Care Provider Prasad Castellano MD Time spent on discharge: > 30 minutes Pending Labs Laboratory Tests Test 01/22/17 05:59 White Blood Count 28.910^3/ul (4.8-10.8) Red Blood Count 5.5410^6/ul (4.70-6.10) Hemoglobin 15.3g/dl (14.0-18.0) Hematocrit 46.1% (42.0-52.0) Mean Corpuscular Volume 83.2fl (82.0-101.0) Mean Corpuscular Hemoglobin 27.6pg (29.0-33.0) Mean Corpuscular Hemoglobin Concent 33.2g/dl (32.0-37.0) Red Cell Distribution Width 14.4% (11.5-14.5) Platelet Count 16859^3/UL (140-415) Mean Platelet Volume 8.9fl (7.4-10.4) Neutrophils % 73.3% (39.0-77.0) Lymphocytes % 17.2% (15.0-51.0) Monocytes % 7.1% (0.0-11.0) Eosinophils % 0.6% (0.0-7.0) Basophils % 0.3% (0.0-2.0) Nucleated Red Blood Cells % 0.0/100WBC (0.0-0.0) Neutrophils # 21.210^3/ul (1.6-7.5) Lymphocytes # 5.010^3/ul (0.8-2.9) Monocytes # 2.110^3/ul (0.3-0.9) Eosinophils # 0.210^3/ul (0.0-0.5) Basophils # 0.110^3/ul (0.0-0.1) Nucleated Red Blood Cells # 0.010^3/ul (0.0-0.0) Sodium Level 141mmol/L (135-144) Potassium Level 4.4mmol/L (3.5-5.1) Chloride Level 103mmol/L (97-110) Carbon Dioxide Level 26mmol/L (21-31) Anion Gap 16 (8-16) Blood Urea Nitrogen 29mg/dl (7-20) Creatinine 0.85mg/dl (0.61-1.24) Glucose Level 119mg/dl (70-220) Hemoglobin A1c 6.3% (0-5.9) Calcium Level 10.0mg/dl (8.4-10.2) Magnesium Level 2.3mg/dl (1.7-2.5) Total Bilirubin 0.0mg/dl (0.2-1.3) Direct Bilirubin 0.00mg/dl (0.00-0.20) Indirect Bilirubin 0.0mg/dl (0-1.1) Aspartate Amino Transf (AST/SGOT) 16IU/L (15-46) Alanine Aminotransferase (ALT/SGPT) 45IU/L (13-69) Alkaline Phosphatase 62IU/L (42-121) Total Protein 6.9g/dl (6.1-8.1) Albumin 4.3g/dl (3.3-4.9) Globulin 2.60g/dl (1.3-3.2) Albumin/Globulin Ratio 1.65 Triglycerides Level 106mg/dl (0-149) Cholesterol Level 166mg/dl (100-200) LDL Cholesterol, Calculated 116mg/dl HDL Cholesterol 29mg/dl (28-63) Cholesterol/HDL Ratio 5.7RATIO Thyroid Stimulating Hormone (TSH) 0.562MIU/L (0.465-4.680) LOLIS KENT Jan 22, 2017 18:32
[2017-01-23 13:42] LABS: MYCOPLASMA PNEUMONIAE AB (IGG) 1.86
[2017-01-23 17:47] LABS: WHITE BLOOD COUNT 27.9 10^3/ul (4.8-10.8)
== END 2017-01-22 12:39 | disposition home or self-care (01) | DRG 190 ==
LOC: FTE 19:59 → TEL 01-21 00:08
PROVIDERS: ADMIT Family Medicine; ATTEND Family Medicine
DX: J44.1 Chronic obstructive pulmonary disease with (acute) exacerbation (principal); J18.9 Pneumonia, unspecified organism; I50.31 Acute diastolic (congestive) heart failure; B37.0 Candidal stomatitis; Z68.42 Body mass index [BMI] 45.0-49.9, adult; E66.01 Morbid (severe) obesity due to excess calories; I11.0 Hypertensive heart disease with heart failure; Z72.0 Tobacco use; D72.829 Elevated white blood cell count, unspecified; Z79.51 Long term (current) use of inhaled steroids
CPT/HCPCS: 36415; 71010; 71020; 71275; 80048; 80053; 80061; 80076; 82550; 82553; 83036; 83735; 83880; 84443; 84484; 85025; 85610; 85730; 86140; 86403; 86738; 87040; 93005; 93306; 94640; 94664; 96374; 96375; C9113; J0696; J1450; J1650; J1940; J1956; J2270; J2930; J7512; Q9967

== ENCOUNTER 2017-10-13 20:12 | Emergency (ER) | END 2017-10-13 23:33 | disposition left against medical advice (07) ==

== ENCOUNTER 2018-07-20 19:22 | Emergency (ER) | payer BC ==
[~2018-07-20] VITALS: Wt 144.1 kg
[~2018-07-20 19:22] MED LIST changes: +ADV10050 INHALATION; +FURO-109 PO; +GUAI-637 PO; +HYDR25TA6 PO; +IBUP200C11 PO; +LEVO750T8 PO; +NYST1000 PO; +POTA20TA96 PO; +PRED10TA PO; -PRED50TA PO; +VALS160T20 PO
[2018-07-20] MEDS ORDERED: IBUPROFEN 800 MG TAB PO ONE (20:30)
[2018-07-20] MEDS ORDERED: IBUP-1542 PO (21:04)
--- NOTE | 2018-07-20 21:06 | ERD ---
ER Documentation Chief Complaint Chief Complaint bib self, cc: chest pain and sob x 1 day HPI Patient is a 37-year-old male with hypertension who presents with arm pain and chest pain. The patient had a TB test placed to his left arm just a few days ago. He has had redness and erythema as well as pain to the arm since then. He tells me though that he is from [facility] and had the BCG vaccine when he was a child so always has reactions to TB test. He denies any cough or weight loss. He has no fevers. Upon review of old medical records this is the patient's 13th visit to the ER since 2010. He does have a primary doctor but cannot remember the doctor's name. ROS All systems reviewed and are negative except as per history of present illness. Medications Home Meds Active Scripts Ibuprofen* (Motrin*) 600 Mg Tab, 600 MG PO Q6H PRN for PAIN AND OR ELEVATED TEMP, #30 TAB Prov:SANDRA BUTCHER MD 07/20/18 Discontinued Reported Medications Guaifenesin* (Robitussin*) 100 Mg/5 Ml Syrup, 200 MG PO Q4H PRN for COUGH, ML 01/21/17 Ibuprofen* (Advil*) 200 Mg Capsule, 600 MG PO Q6H PRN for PAIN, CAP 01/21/17 Hydrochlorothiazide* (Hydrochlorothiazide*) 25 Mg Tab, 25 MG PO DAILY, #30 TAB 01/21/17 Valsartan* (Diovan*) 160 Mg Tablet, 160 MG PO DAILY, TAB 01/21/17 Discontinued Scripts Salmeterol Xinaf-Fluticasone* (Advair*) 100/50 Diskus Inhaler, 1 INH INHALATION BID, #1 INHALER Prov:LOLIS KENT. 01/22/17 Prednisone* (Prednisone*) 10 Mg Tab, 10 MG PO DAILY, #15 TAB take 5 pills on the next day take 4 pills on the next day take 3 pills on the next day take 2 pills on the next day take 1 pill on the next day then stop Prov:LOLIS KENT. 01/22/17 Levofloxacin* (Levofloxacin*) 750 Mg Tablet, 750 MG PO DAILY for 7 Days, TAB Prov:LOLIS KENT 01/22/17 Potassium Chloride* (Potassium Chloride*) 20 Meq Tablet.er, 20 MEQ PO DAILY for 10 Days, TAB.SA Prov:LOLIS KENT. 01/22/17 Furosemide* (Lasix*) 40 Mg Tablet, 40 MG PO DAILY for 7 Days, TAB Prov:LOLIS KENT. 01/22/17 Promethazine HCl/Codeine (Prometh-Codein 6.25-10 mg/5 ml) 5 Ml Syrup, 5 ML PO QHS, #60 OZ Prov:LOLIS KENT. 01/22/17 Nystatin (Nystatin) 100,000 Unit/1 Ml Oral.susp, 5 ML PO QID for 10 Days Prov:LOLIS KENT. 01/22/17 Allergies Allergies: Coded Allergies: mustard (Verified Allergy, Unknown, hives, 07/20/18) PMhx/Soc History of Surgery: Yes (knee sx) Anesthesia Reaction: No Hx Neurological Disorder: No Hx Respiratory Disorders: No Hx Cardiac Disorders: No Hx Psychiatric Problems: No Hx Miscellaneous Medical Probl: No Hx Alcohol Use: Yes (occassionally) Hx Substance Use: No Hx Tobacco Use: Yes (1 pack/day) Smoking Status: Current every day smoker FmHx Family History: diabetes Physical Exam Vitals Vital Signs Date Temp Pulse Resp B/P (MAP) Pulse Ox O2 O2 Flow FiO2 Time Delivery Rate 07/20/18 98.5 84 19 185/94 97 19:25 (124) Physical Exam Const: No acute distress Head: Atraumatic Eyes: Normal Conjunctiva ENT: Normal External Ears, Nose and Mouth. Neck: Full range of motion. No meningismus. Resp: Clear to auscultation bilaterally Cardio: Regular rate and rhythm, no murmurs Abd: Soft, non tender, non distended. Normal bowel sounds Skin: Erythema to the area around the TB test with induration on the left forearm Back: No midline or flank tenderness Ext: No cyanosis, or edema Neur: Awake and alert Psych: Normal Mood and Affect Result Diagram: 07/20/18201707/20/182017 Results 24 hrs Laboratory Tests Test 07/20/18 20:18 White Blood Count 16.1 10^3/ul Red Blood Count 5.94 10^6/ul Hemoglobin 14.9 g/dl Hematocrit 47.1 % Mean Corpuscular Volume 79.3 fl Mean Corpuscular Hemoglobin 25.1 pg Mean Corpuscular Hemoglobin Concent 31.6 g/dl Red Cell Distribution Width 15.2 % Platelet Count 317 10^3/UL Mean Platelet Volume 9.2 fl Immature Granulocytes % 0.500 % Neutrophils % 63.6 % Lymphocytes % 23.8 % Monocytes % 7.2 % Eosinophils % 4.3 % Basophils % 0.6 % Nucleated Red Blood Cells % 0.0 /100WBC Immature Granulocytes # 0.080 10^3/ul Neutrophils # 10.2 10^3/ul Lymphocytes # 3.8 10^3/ul Monocytes # 1.2 10^3/ul Eosinophils # 0.7 10^3/ul Basophils # 0.1 10^3/ul Nucleated Red Blood Cells # 0.0 10^3/ul Sodium Level 141 mmol/L Potassium Level 4.3 mmol/L Chloride Level 107 mmol/L Carbon Dioxide Level 26 mmol/L Anion Gap 8 Blood Urea Nitrogen 16 mg/dl Creatinine 0.81 mg/dl Est Glomerular Filtrat Rate mL/min > 60 mL/min Glucose Level 101 mg/dl Calcium Level 9.7 mg/dl Troponin I < 0.012 ng/ml Current Medications Medications Dose Sig/Elizabeth Start Time Status Last (Trade) Ordered Route PRN Stop Time Admin Dose Reason Admin Ibuprofen 800 mg ONCE ONCE 07/20/18 DC 07/20/18 (Motrin) PO 20:30 20:32 07/20/18 20:31 Procedures/MDM EKG read by me: Rate/Rhythm: Regular rate and rhythm at a rate of 83 Intervals: Normal Impression: No evidence of ischemia or arrhythmia X-ray negative per radiology. Smoking Cessation Therapy: Pt. was lectured for greater than 3 minutes on the health risks of continued smoking and the benefits of cessation. Patient is a 37-year-old male who presents with left arm pain and chest pain. EKG and chest x-ray were negative. At this point I doubt acute coronary syndrome, pneumonia, pneumothorax, pulmonary embolism, or aortic dissection. I told the patient that he should not get PPD test placed in the future as he has had the BCG vaccine as a child. The patient will likely need a QuantiFERON gold test going forward. I doubt active TB at this point however. Departure Diagnosis: Primary Impression: Reaction to tuberculin skin test without active tuberculosis Additional Impression: Chest pain Chest pain type: unspecified Qualified Codes: R07.9 - Chest pain, unspecified Condition: Fair Patient Instructions: Chest Pain, Uncertain Cause Referrals: Your doctor Additional Instructions: Call your primary care doctor TOMORROW for an appointment during the next 1-2 days.See the doctor sooner or return here if your condition worsens before your appointment time. SANDRA BUTCHER MD Jul 20, 2018 21:06
[2018-07-20 21:13] VITALS: BP 164/85; PULSE 71; RESP 17
== END 2018-07-20 21:14 | disposition home or self-care (01) ==
LOC: E/R 19:22
DX: R76.11 Nonspecific reaction to tuberculin skin test without active tuberculosis (principal); I10 Essential (primary) hypertension; F17.210 Nicotine dependence, cigarettes, uncomplicated
CPT/HCPCS: 71045; 80048; 84484; 85025; Z7610; 36415; 93005